=== PATIENT | male | born 1995 | race American Indian/Alaskan Native ===

== ENCOUNTER 2021-08-20 21:18 | Emergency (ER) | payer SELFPAY ==
[2021-08-20 22:14] LABS: Absolute Lymphocytes (CBC) 2.3 K/uL (0.7-4.9); Basophils % 0.7 % (0-1.3); Hematocrit 40.8 % (39.6-49.0); Lymphocytes % 25.7 % (15.3-44.8); MPV 8.9 fL (7.6-11.3); RBC Red Blood Cell Count 4.35 M/uL (4.33-5.43)
[2021-08-20] MEDS ORDERED: NA CHLORIDE 0.9% 1,000 ML ONE (22:24)
[2021-08-20 22:33] LABS: ALT/SGPT 25 U/L (12-78); AST/SGOT 19 U/L (15-37); Albumin 3.7 g/dL (3.4-5.0); BUN Blood Urea Nitrogen 18 mg/dL (7-18); Bicarbonate 30 mmol/L (21-32); Bilirubin Direct < 0.1 mg/dL (0-0.2); Glucose Level 72 mg/dL (74-106); Lipase 108 U/L (73-393); Potassium 3.7 mmol/L (3.5-5.1); Sodium Level 142 mmol/L (136-145)
[2021-08-20 22:35] LABS: Alkaline Phosphatase 84 U/L (45-117); Bilirubin Total 0.3 mg/dL (0.2-1.0); Protein, Total 8.2 g/dL (6.4-8.2)
[2021-08-20] MEDS ORDERED: CEFTRIAXONE 1000 MG/VIAL ONE (22:46)
--- NOTE | 2021-08-20 22:54 | EDPHYS ---
Physician Documentation [facility] Name: Jose Manuel Moody Age: 26 yrs Sex: Male : 1995 Arrival Date: 08/20/2021 Time: 21:23 Bed 20 Private MD: ED Physician Harpreet Garcia HPI: 08/20 21:50 This 26 yrs old Other Male presents to ER via EMS with complaints of Penile Pain. cp 21:50 The patient presents with swelling, of the head of penis, tenderness, that is moderate, cp of the head of penis, urinary symptoms, dysuria. Onset: The symptoms/episode began/occurred 3 day(s) ago. Associated signs and symptoms: Pertinent negatives: abdominal pain, constipation, diarrhea, fever, hematuria, vomiting. Severity of symptoms: in the emergency department the symptoms are unchanged. Patient reports being sexually active and having unprotected intercourse recently. Historical: - Allergies: 21:13 No Known Allergies; sl2 - Home Meds: 21:13 None [Active]; sl2 - PMHx: 21:13 swelling of head of penis; urinating pus and blood; history of substance abuse; history sl2 of anxiety; - Immunization history:: Adult Immunizations unknown. - Social history:: Smoking status: Patient reports the use of cigarette tobacco products, denies chronic smoking, but will smoke occasionally, daily, Reported history of juuling and/or vaping. Patient uses alcohol, admits to "couple of beers" a day. marijuana. - Code Status:: Full code. - Coronavirus screen:: The patient has NOT traveled to [place] in the past 14 days. The patient has NOT had contact with known/suspected case of Coronavirus?. - Ebola Screening: : Patient negative for fever greater than or equal to 101.5 degrees Fahrenheit, and additional compatible Ebola Virus Disease symptoms No symptoms or risks identified at this time. ROS: 22:00 Constitutional: Negative for body aches, chills, fever, poor PO intake. cp 22:00 Eyes: Negative for injury, pain, redness, and discharge. cp 22:00 Cardiovascular: Negative for chest pain, palpitations. 22:00 Respiratory: Negative for cough, shortness of breath, wheezing. 22:00 Abdomen/GI: Negative for abdominal pain, nausea, vomiting, and diarrhea. 22:00 : Positive for urinary symptoms, penile pain, Negative for difficulty urinating, testicular pain 22:00 Neuro: Negative for altered mental status, headache, weakness. 22:00 All other systems are negative. Exam: 22:05 Constitutional: The patient appears in no acute distress, alert, awake, non-toxic, well cp developed, well nourished. 22:05 Head/Face: Normocephalic, atraumatic. cp 22:05 Eyes: Periorbital structures: appear normal, Conjunctiva: normal, no exudate, no injection, Sclera: no appreciated abnormality, Lids and lashes: appear normal, bilaterally. 22:05 ENT: External ear(s): are unremarkable, Nose: is normal, Mouth: Lips: moist, Oral mucosa: moist, Posterior pharynx: Airway: no evidence of obstruction, patent. 22:05 Chest/axilla: Inspection: normal. 22:05 Cardiovascular: Rate: normal. 22:05 Respiratory: the patient does not display signs of respiratory distress, Respirations: normal, no use of accessory muscles, labored breathing, is not present. 22:05 Abdomen/GI: Inspection: abdomen appears normal, Palpation: abdomen is soft and non-tender, in all quadrants. 22:05 Back: CVA tenderness, is absent. 22:05 : Male external genitalia: Circumcision noted. erythema, of the head of penis is seen, that is mild, swelling: of the head of penis is noted, penile, that is mild. 22:05 Neuro: Orientation: to person, place \\T\\ time. Mentation: is normal, Motor: moves all fours, strength is normal. Vital Signs: 21:13 BP 131 / 86; Pulse 83; Resp 20; Temp 98.3; Pulse Ox 100% on R/A; Weight 81.65 kg; sl2 Height 5 ft. 6 in. (167.64 cm); 21:13 BP 131 / 86; Pulse 83; Resp 20; Temp 98.3; Pulse Ox 100% on R/A; Weight 81.65 kg; sl2 Height 5 ft. 6 in. (167.64 cm); 23:57 BP 117 / 78; Pulse 72; Resp 14; Pulse Ox 99% on R/A; cc4 21:13 Body Mass Index 29.05 (81.65 kg, 167.64 cm) sl2 MDM: 21:26 Patient medically screened. trinh 22:30 Differential diagnosis: appendicitis, UTI, urinary retention, prostatitis, urethritis. cp 22:52 Data reviewed: vital signs, nurses notes, lab test result(s). cp 22:52 Counseling: I had a detailed discussion with the patient and/or guardian regarding: the cp historical points, exam findings, and any diagnostic results supporting the discharge/admit diagnosis, lab results, the need for outpatient follow up, a family practitioner, to return to the emergency department if symptoms worsen or persist or if there are any questions or concerns that arise at home. Response to treatment: the patient's symptoms have mildly improved after treatment, and as a result, I will discharge patient. 08/20 21:43 Order name: Basic Metabolic Panel; Complete Time: 22:50 08/20 22:51 Interpretation: Normal except: GLUC 72. 08/20 21:43 Order name: CBC with Diff; Complete Time: 22:25 08/20 22:25 Interpretation: Normal except: HGB 13.4; MN% 13.4. 08/20 21:43 Order name: Hepatic Function; Complete Time: 22:50 08/20 22:51 Interpretation: Normal except: GLOB 4.5; A/G 0.8. 08/20 21:43 Order name: Lipase; Complete Time: 22:50 08/20 21:43 Order name: Urine Microscopic Only 08/20 21:43 Order name: IV Saline Lock; Complete Time: 22:22 08/20 21:43 Order name: Labs collected and sent; Complete Time: 22:22 08/20 21:43 Order name: Urine Dipstick-Ancillary (obtain specimen); Complete Time: 23:36 08/20 22:51 Order name: PO challenge: sandwich and juice; Complete Time: 22:59 cp Administered Medications: 20:20 Drug: NS 0.9% 1000 ml Route: IV; Rate: 1 bolus; Site: right antecubital; cc4 23:58 Follow up: IV Status: Completed infusion cc4 20:35 Drug: Rocephin (cefTRIAXone) 1 grams Route: IV; Rate: calculated rate; Site: right cc4 antecubital; 23:58 Follow up: IV Status: Completed infusion cc4 23:57 Drug: Zithromax (azithromycin) 1 grams Route: PO; cc4 23:58 Follow up: Response: No adverse reaction cc4 Disposition Summary: 08/20/21 22:53 Discharge Ordered Location: Home cp Problem: new cp Symptoms: have improved cp Condition: Stable cp Diagnosis - Balanitis cp Followup: cp - With: Private Physician - When: 1 - 2 days - Reason: Recheck today's complaints Discharge Instructions: - Discharge Summary Sheet cp - Balanitis cp Forms: - Medication Reconciliation Form cp - Thank You Letter cp - Antibiotic Education cp - Prescription Opioid Use cp Prescriptions: - Augmentin 875-125 mg Oral Tablet - take 1 tablet by ORAL route every 12 hours for 10 days; 20 tablet; Refills: 0, cp Product Selection Permitted - nystatin 100,000 unit/gram Topical ointment - apply 1 application by TOPICAL route 3 times per day As needed; 30 gram; cp Refills: 0, Product Selection Permitted Addendum: 08/23/2021 03:41 Co-signature as Attending Physician, Harpreet Garcia MD I agree with the assessment and c novak plan of care. Signatures: Dispatcher [employer] EDHarpreet Guallpa MD MD cha Page, Corey, PA PA cp Rufina Prater, RN RN cc4 Delores Spencer RN RN sl2 Corrections: (The following items were deleted from the chart) 08/20 21:32 21:13 PMHx: Anxiety; sl2 sl2 08/21 22:12 22:09 This 26 yrs old Other Male presents to ER via EMS with complaints of Penile Pain. cp cp
--- NOTE | 2021-08-20 22:54 | ER ---
Nurse's Notes [facility] Name: Jose Manuel Moody Age: 26 yrs Sex: Male : 1995 Arrival Date: 08/20/2021 Time: 21:23 Bed 20 Private MD: Diagnosis: Balanitis Presentation: 08/20 21:13 Initial Sepsis Screen: Does the patient meet any 2 criteria? No. Patient's initial sl2 sepsis screen is negative. Risk Assessment: Do you want to hurt yourself or someone else? Patient reports no desire to harm self or others. Onset of symptoms was August 18, 2021. 21:13 Acuity: WALLACE 4 sl2 21:35 Chief complaint: EMS states: Swelling of penis x 3 days with enlargement of head of sl2 penis; reports patient voided with "pus \\T\\ blood" noted of urine; patient reports last sexual encounter 1 week ago; reports using synthetic marijuana 3 days ago; reports being homeless; reports h/o mental disorder (anxiety) and no longer taking medication. 21:39 Coronavirus screen: Vaccine status: Patient reports being unvaccinated. Client denies sl2 travel out of the [place] in the last 14 days. At this time, the client does not indicate any symptoms associated with coronavirus-19. Ebola Screen: Patient negative for fever greater than or equal to 101.5 degrees Fahrenheit, and additional compatible Ebola Virus Disease symptoms No symptoms or risks identified at this time. 21:39 Method Of Arrival: EMS: [facility] sl2 Triage Assessment: 21:41 General: Appears uncomfortable, unkempt, Behavior is calm, cooperative, Smells of body sl2 odor.. Historical: - Allergies: 21:13 No Known Allergies; sl2 - Home Meds: 21:13 None [Active]; sl2 - PMHx: 21:13 swelling of head of penis; urinating pus and blood; history of substance abuse; history sl2 of anxiety; - Immunization history:: Adult Immunizations unknown. - Social history:: Smoking status: Patient reports the use of cigarette tobacco products, denies chronic smoking, but will smoke occasionally, daily, Reported history of juuling and/or vaping. Patient uses alcohol, admits to "couple of beers" a day. marijuana. - Code Status:: Full code. - Coronavirus screen:: The patient has NOT traveled to [place] in the past 14 days. The patient has NOT had contact with known/suspected case of Coronavirus?. - Ebola Screening: : Patient negative for fever greater than or equal to 101.5 degrees Fahrenheit, and additional compatible Ebola Virus Disease symptoms No symptoms or risks identified at this time. Screenin:57 Abuse screen: Denies threats or abuse. Denies injuries from another. Nutritional cc4 screening: No deficits noted. Tuberculosis screening: No symptoms or risk factors identified. Fall Risk None identified. Vital Signs: 21:13 BP 131 / 86; Pulse 83; Resp 20; Temp 98.3; Pulse Ox 100% on R/A; Weight 81.65 kg; sl2 Height 5 ft. 6 in. (167.64 cm); 21:13 BP 131 / 86; Pulse 83; Resp 20; Temp 98.3; Pulse Ox 100% on R/A; Weight 81.65 kg; sl2 Height 5 ft. 6 in. (167.64 cm); 23:57 BP 117 / 78; Pulse 72; Resp 14; Pulse Ox 99% on R/A; cc4 21:13 Body Mass Index 29.05 (81.65 kg, 167.64 cm) sl2 ED Course: 21:23 Patient arrived in ED. sl2 21:23 Delores Spencer, YVON is Primary Nurse. sl2 21:25 Harpreet Benito PA is PHCP. cp 21:25 Harpreet Garcia MD is Attending Physician. cp 21:41 Triage completed. sl2 23:56 IV discontinued, intact, bleeding controlled, No redness/swelling at site. Pressure cc4 dressing applied. 23:57 Arm band placed on right wrist. cc4 23:58 No provider procedures requiring assistance completed. cc4 Administered Medications: 20:20 Drug: NS 0.9% 1000 ml Route: IV; Rate: 1 bolus; Site: right antecubital; cc4 23:58 Follow up: IV Status: Completed infusion cc4 20:35 Drug: Rocephin (cefTRIAXone) 1 grams Route: IV; Rate: calculated rate; Site: right cc4 antecubital; 23:58 Follow up: IV Status: Completed infusion cc4 23:57 Drug: Zithromax (azithromycin) 1 grams Route: PO; cc4 23:58 Follow up: Response: No adverse reaction cc4 Outcome: 22:53 Discharge ordered by . jian 23:58 Discharged to home ambulatory. cc4 23:58 Condition: good 23:58 Discharge instructions given to patient, Instructed on discharge instructions, follow up and referral plans. medication usage, Demonstrated understanding of instructions, Prescriptions given X 2. 23:58 Patient left the ED. cc4 Signatures: Harpreet Benito PA PA cp Cooper, Christie, RN RN cc4 Delores Spencer RN RN sl2 Corrections: (The following items were deleted from the chart) 21:32 21:13 PMHx: Anxiety; sl2 sl2
[2021-08-20] MEDS ORDERED: AZITHROMYCIN 250 MG TAB ONE ×2 (23:44→23:48)
[2021-08-21 00:17] LABS: Urine Bacteria <20 /HPF (NONE SEEN); Urine RBC <5 /HPF (NONE SEEN)
[2021-08-21 00:24] VITALS: BP 117/78; O2SAT 99
== END 2021-08-20 23:58 | disposition home or self-care (01) ==
LOC: ER 21:18
DX: N48.1 Balanitis (principal); F17.210 Nicotine dependence, cigarettes, uncomplicated; F12.90 Cannabis use, unspecified, uncomplicated; F17.290 Nicotine dependence, other tobacco product, uncomplicated
CPT/HCPCS: 36415; 80048; 80076; 81015; 83690; 85025; 96365; 96366; 99283; J7030